=== PATIENT | female | born 1980 ===

== ENCOUNTER 2018-01-24 12:35 | Emergency (ER) | payer SELFPAY ==
--- NOTE | 2018-01-24 13:17 | EDPHY ---
General Time Seen by Provider: 01/24/18 13:07 Narrative: CHIEF COMPLAINT: Left foot pain HISTORY OF PRESENT ILLNESS: Patient presents with complaints of left foot pain. 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 She was approximately 2 km into the race when she felt pain in the left foot the caused her to stop. She had some pain in this area previously that was mild. During the race a became moderate to severe. She had to stop the raise. She does strain heavily, including 15 miles per day. She has traveled here from [place] to do this raise. She has no numbness or tingling. She does have mild pain at rest. No radiating pain. No blunt trauma or injury. No other associated complaints or modifying factors. ESTABLISHED ORTHOPEDIST: In [place] REVIEW OF SYSTEMS: Ten systems reviewed and are negative unless otherwise noted in the HPI PAST MEDICAL HISTORY: Orthopedic injuries only PAST SURGICAL HISTORY: Denies any recent surgeries SOCIAL HISTORY: Originally from [place]. Traveled here for the [employer]. 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 Symmetric PT pulses 2+. Good signs of perfusion left lower extremity. Neurological: A&O, sensory of the lower extremities is symmetric. Strength of the great toe symmetric. Skin: Warm and dry, no rash no petechiae or purpura. No puncture. No ecchymosis. Extremities: Mild tenderness to the left midfoot. There is no crepitus or deformity. Range of motion of the feet and ankle symmetric. Psychiatric: Mood and affect normal DIFFERENTIAL DIAGNOSES: Including but not limited to fracture, sprain, strain, stress fracture, Glasgow neuroma MDM: 1:05 p.m. Acute injury to left foot with pain that started prior to running this morning. No acute findings on x-ray. She is neuro intact distally. She has no injury to the remainder of the left extremity. She is ambulatory but has moderate pain and is unable to run. Given the patient's high level of training, she has high likelihood of stress or occult fracture. 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 She has declined. She would like to be discharged and follow up with further imaging and [place]. Will place her in a postoperative shoe and crutches so that she may remain nonweightbearing. I recommend ice, elevation ibuprofen. She is declining any narcotic pain medication. She is in no acute distress. Discharged in stable condition. SUPERVISION: This patient was independently evaluated without direct involvement of or examination by the attending physician. ED Precautions: Worsening pain. Erythema, edema, cyanosis, pallor, paresthesia or anesthesia. - Objective Vital Signs: Initial Vital Signs Temperature (C) 98.2 F 01/24/18 13:11 Heart Rate 68 01/24/18 13:11 Respiratory Rate 16 01/24/18 13:11 Blood Pressure 112/84 H 01/24/18 13:11 O2 Sat (%) 99 01/24/18 13:11 O2 Delivery Mode Room Air Allergies/Adverse Reactions: No Known Allergies Allergy (Unverified 01/24/18 13:16) Departure - Departure Disposition: Home, Routine, Self-Care Clinical Impression: Sprain of foot, left Qualifiers: Encounter type: initial encounter Qualified Code(s): S93.602A - Unspecified sprain of left foot, initial encounter Acute foot pain Qualifiers: Laterality: left Qualified Code(s): M79.672 - Pain in left foot Condition: Good Instructions: Foot Sprain (ED), Arthralgia (ED), Metatarsalgia (DC) Additional Instructions: 1. Apply ice and elevate the extremity often 2. Ibuprofen 400 mg every 6-8 hours as needed for pain 3. Follow up with your Orthopedics when you return home to [place] 4. Nonweightbearing if you have any pain when doing so Referrals: Patient,NotPresent [Primary Care Provider] - As per Instructions Manny Guerra MD [Medical Doctor] - As per Instructions Print Language: [place]
[2018-01-24 13:39] VITALS: BP 114/62
== END 2018-01-24 13:38 | disposition home or self-care (01) ==
DX: S93.602A Unspecified sprain of left foot, initial encounter (principal); X58.XXXA Exposure to other specified factors, initial encounter; Y99.8 Other external cause status; Y93.89 Activity, other specified
CPT/HCPCS: L4386